=== PATIENT | female | born 1995 | race Caucasian/White ===

== ENCOUNTER → 2023-08-09 | Outpatient (CLI) | payer BC ==
--- NOTE | 2023-08-09 09:06 | MR ---
EXAMINATION TYPE: MR brain wo con DATE OF EXAM: 08/09/2023 8:33 AM CLINICAL INDICATION:Female, 28 years old with history of G43.109 MIGRAINE WITH AURA; PHH, Migraines COMPARISON: MRI of brain 2010. TECHNIQUE: Multi planar, multi sequence imaging was performed through the brain including: T1, T2, In version recovery, Diffusion weighted imaging, and gradient echo imaging. No gadolinium was given. FINDINGS: The lockett-white junctions, ventricular system, basal cisterns appear unremarkable. No abnormal brain parenchymal signal noted. Midline structures show no abnormality. Diffusion-weighted imaging shows n o evidence of restricted diffusion. The susceptibility weighted images do not reveal any evidence for micro-hemorrhage. The bone marrow signal is within normal limits. Paranasal sinuses and mastoid air cells: No significant paranasal sinus disease. Visualized orbits: Orbital contents are intact. IMPRESSION: 1. No evidence of intracranial mass or acute/subacute infarct. 2. No abnormal brain parenchymal signal.
== END | disposition home or self-care (01) ==
LOC: RADMRIMAIN 07:45
PROVIDERS: ATTEND Family Medicine
DX: G43.109 Migraine with aura, not intractable, without status migrainosus (principal)
CPT/HCPCS: 70551

== ENCOUNTER → 2024-04-16 | Outpatient (CLI) | payer BC ==
--- NOTE | 2024-04-16 16:43 | MR ---
EXAMINATION TYPE: MR shoulder RT wo con DATE OF EXAM: 04/16/2024 3:07 PM COMPARISON: None. CLINICAL INDICATION: Female, 29 years old with history of M25.511 PAIN IN RIGHT SHOULDER, Right shoul cristian Pain and tingling into fingers since November 2023 TECHNIQUE: Multiplanar, multisequence imaging of the right shoulder is performed without contrast. FINDINGS: There is no bone contusion or fracture. There are no joint effusions. There is no osteoarthritic change of the AC joint and glenohumeral joint. The tendons of the rotator cuff are intact. The biceps tendon is normal in signal intensity and position within the bicipital groove and the franki ps anchor is intact. No definite labral injury. There is no subacromial or subdeltoid bursitis. IMPRESSION: No significant abnormality seen [facility], , 04/16/2024 4:40 PM
== END | disposition home or self-care (01) ==
LOC: RADMRIMAIN 14:35
PROVIDERS: ATTEND Family Medicine
DX: M25.511 Pain in right shoulder (principal)

== ENCOUNTER → 2024-05-01 | Outpatient (CLI) | payer BC ==
--- NOTE | 2024-05-04 22:22 | MR ---
EXAMINATION TYPE: MR cervical spine wo con DATE OF EXAM: 05/01/2024 1:33 PM COMPARISON: None. CLINICAL INDICATION: Female, 29 years old with history of M54.12 radiculopathy, Neck pain, RUE radicu lopathy, straining injury. TECHNIQUE: Multiplanar multiecho imaging on a 3.0 Alee magnet is performed through the cervical spin e. IV Contrast: mL (None, if empty) FINDINGS: The craniovertebral junction is normal. Vertebral body alignment is normal. C7-T1: No focal disc herniation or significant disc bulge is evident. No spinal canal stenosis or n eural foraminal stenosis is present. C6-7: There is a large disc herniation in the right paracentral to right lateral direction. Disc with in the spinal canal extending posterior to C7 measures up to 6 0.7 x 0.9 cm. Mild cord contact is layne dent. Exiting nerve root compression and displacement is evident. C5-6: Broad-based disc bulge is present with mild anterior thecal sac compression. Cord contact may b e present. Some minimal cord flattening is not excluded. Moderate bilateral foraminal narrowing is pr esent. C4-5: Central disc bulge is present. This appears broad-based with anterior thecal sac contact and co rd contact. No cord deformity is evident. Moderate bilateral foraminal narrowing is present. C3-4: No focal disc herniation or significant disc bulge is evident. No spinal canal stenosis or kavon ral foraminal stenosis is present. C2-3: No focal disc herniation or significant disc bulge is evident. No spinal canal stenosis or kavon ral foraminal stenosis is present. IMPRESSION: 1. Large right paracentral and right lateral disc herniation C6-7 with exiting nerve root compression and displacement. Correlate with radicular symptoms. 2. Mild disc bulging C5-6 without spinal canal stenosis. 3. Cord contact without cord deformity may be present C4-5 there are multiple cord flattening C5-6 ma y be present [facility], , 05/04/2024 10:20 PM
== END | disposition home or self-care (01) ==
LOC: RADMRIMAIN 12:58
PROVIDERS: ATTEND Family Medicine
DX: M50.123 Cervical disc disorder at C6-C7 level with radiculopathy (principal)
CPT/HCPCS: 72141

== ENCOUNTER → 2024-06-13 | Outpatient (CLI) | payer BC ==
--- NOTE | 2024-06-13 19:32 | MR ---
EXAMINATION TYPE: MR tspine/lspine wo con DATE OF EXAM: 06/13/2024 COMPARISON: NONE HISTORY: prior cervical mri, mid and low back pain that radiates into right buttock. M54.6 and M54.1 6 TECHNIQUE: Multiplanar, multisequence imaging of the thoracic and lumbar spine are performed without IV contrast. FINDINGS: T-SPINE: FINDINGS: Spinal cord shows normal course, caliber, and signal as it courses the thoracic spine. Moe tebral body heights and alignment are satisfactory. Bone marrow signal intensity is preserved. No lar ge posterior disc herniation seen on sagittal images. This space heights are maintained. Review of the axial images shows no significant spinal canal stenosis or neural foraminal narrowing a t any thoracic level. Visualized thorax and upper abdomen are grossly normal. IMPRESSION: Unremarkable study. L-SPINE: Sagittal images of the lumbar spine show vertebral body heights and alignment to appear satisfactory. The intervertebral discs demonstrate normal heights and hydration. The conus medullaris is normal i n position and signal ending at mid L1 level. The bone marrow signal intensity is within normal limi ts. Axial images show mild facet arthropathy at L4-5 level otherwise are unremarkable. . Paraspinal muscl es are maintained. Uterine fundus in the left ovary are Partially imaged. IMPRESSION: No significant finding seen to account for the patient's clinical symptoms. [facility], , 06/13/2024 7:29 PM
== END | disposition home or self-care (01) ==
LOC: RADMRIMAIN 18:04
PROVIDERS: ATTEND Family Medicine
DX: M54.16 Radiculopathy, lumbar region (principal); M54.6 Pain in thoracic spine
CPT/HCPCS: 72146; 72148

== ENCOUNTER → 2024-06-14 | Outpatient (CLI) | payer BC ==
--- NOTE | 2024-06-16 09:01 | CT ---
EXAMINATION TYPE: CT cervical spine wo con DATE OF EXAM: 06/14/2024 4:04 PM COMPARISON: None. CLINICAL INDICATION: Female, 29 years old with history of M54.12, M62.81, Herniated discs x6 months., pain TECHNIQUE: CT of the cervical spine is performed in the axial plane at 2 mm thick sections. Reconstr ucted images in the coronal, and sagittal plane are reviewed on the computer. Contrast used: mL of , (none if empty) Oral contrast used: (none if empty) CT DLP: 395 mGycm, Automated exposure control for dose reduction was used. FINDINGS: No acute fractures are evident. There is a cervical kyphosis centered at C5 Disc space narrowing is present C5-6 anteriorly. Minimal endplate changes may be present C5-C6 . Some broad-based disc bulging with mild to moderate anterior thecal sac compression is at C5-6. No AP spi nal canal stenosis. Cord contact may be present. Vertebral body heights are preserved. No spinal canal stenosis is evident No neural foraminal stenosis is evident. IMPRESSION: 1. Mild cervical kyphosis with minimal degenerative disc change C5-6. 2. Broad-based disc bulge with mild anterior thecal sac compression C5-6 may have cord contact. No st enosis evident. [facility], Workstation: [facility], 06/16/2024 8:59 AM
== END | disposition home or self-care (01) ==
LOC: RADCTMAIN 15:12
PROVIDERS: ATTEND Orthopaedic Surgery
DX: M50.122 Cervical disc disorder at C5-C6 level with radiculopathy (principal); M40.292 Other kyphosis, cervical region
CPT/HCPCS: 72125